=== PATIENT | male | born 1970 | race Caucasian/White ===

== ENCOUNTER 2019-07-14 13:21 | Emergency (ER) | payer SELFPAY ==
[2019-07-14 13:53] VITALS: BP 124/71
--- NOTE | 2019-07-14 14:03 | UC ---
Hand/Wrist HPI - HPI Summary HPI Summary: pain left pinky finger x 1 day pain is 6 out 10 , worse with movement, better with rest, + swelling, limited ROM injury at work , wrench broke and smashed his pinky - History Of Current Complaint Chief Complaint: UCUpperExtremity Stated Complaint: LEFT LITTLE FINGER INJURY Time Seen by Provider: 07/14/19 13:35 Hx Obtained From: Patient Onset/Duration: Sudden Onset, Lasting Days - 1, Still Present Severity Initially: Moderate Severity Currently: Moderate Pain Intensity: 2 Character Of Pain: Aching, Throbbing Aggravating Factor(s): Movement, Flexion, Extension Alleviating Factor(s): Rest, Ice Associated Signs And Symptoms: Positive: Swelling, Weakness. Negative: Redness , Bruising, Fever, Numbness/Tingling - Allergies/Home Medications Allergies/Adverse Reactions: Allergies Allergy/AdvReac Type Severity Reaction Status Date / Time No Known Allergies Allergy Verified 07/14/19 13:53 Home Medications: Home Medications Hydrocodone/Acetaminophen [Hydrocodone/Acetaminophen 10-325 mg] 1 tab PO DAILY PRN 07/14/19 [History Confirmed 07/14/19] PMH/Surg Hx/FS Hx/Imm Hx Previously Healthy: Yes - Surgical History Surgical History: None - Family History Known Family History: Positive: Non-Contributory - Social History Alcohol Use: Occasionally Substance Use Type: None Smoking Status (MU): Never Smoked Tobacco Review of Systems All Other Systems Reviewed And Are Negative: Yes Is Patient Immunocompromised?: No Physical Exam Triage Information Reviewed: Yes Appearance: Well-Appearing, No Pain Distress, Well-Nourished Vital Signs: Initial Vital Signs Temp 98.2 F 07/14/19 13:46 Pulse 84 07/14/19 13:46 Resp 14 07/14/19 13:46 BP 124/71 07/14/19 13:46 Pulse Ox 98 07/14/19 13:46 Vital Signs Reviewed: Yes Eye Exam: Normal Eyes: Positive: Conjunctiva Clear ENT: Positive: Normal ENT inspection, Hearing grossly normal, Pharynx normal Neck: Positive: Supple, Nontender, No Lymphadenopathy Respiratory: Positive: Chest non-tender, Lungs clear, Normal breath sounds Cardiovascular: Positive: RRR, No Murmur, Pulses Normal Musculoskeletal: Positive: Other: - left 5th finger : + swelling, + ganglion cyct DIP causing radial deviation of the distal phalangs , tenderness DIP , limited ROM on Flexion , smal abrasion at proximal phalangs Diagnostics - Radiology No standard instances Radiology Interpretation Completed By: Radiologist Summary of Radiographic Findings: xray report left little finger : IMPRESSION: NONDISPLACED INTRA-ARTICULAR FRACTURE OF THE LEFT FIFTH DISTAL PHALANX. Hand/Wrist Course/Dx - Differential Dx/Diagnosis Provider Diagnosis: Fracture of phalanx of left little finger Discharge ED - Sign-Out/Discharge Documenting (check all that apply): Patient Departure All imaging exams completed and their final reports reviewed: Yes - Discharge Plan Condition: Stable Disposition: HOME Patient Education Materials: Finger Fracture (ED) Referrals: Grey Adames MD [Medical Doctor] - As Soon As Possible Baldo Jeffrey MD [Primary Care Provider] - - Billing Disposition and Condition Condition: STABLE Disposition: Home
== END 2019-07-14 14:37 | disposition home or self-care (01) ==
LOC: UCCORT 13:21
DX: S62.667A Nondisplaced fracture of distal phalanx of left little finger, initial encounter for closed fracture (principal); W22.8XXA Striking against or struck by other objects, initial encounter; Y92.9 Unspecified place or not applicable; Y99.0 Civilian activity done for income or pay
CPT/HCPCS: 73140; 99202; G0463